=== PATIENT | male | born 1960 | race Two or more races ===

== ENCOUNTER 2016-12-22 20:46 | Observation (INO) | payer OTHER ==
[~2016-12-22] VITALS: Ht 170.2 cm; Wt 84.4 kg
[~2016-12-22 20:46] MED LIST: ARICEPT10 MG PO; ASPIR 8181 M1 PO; ATENOLOL50 M1 PO; BENTYL20 MG PO; BUSPIRONE HCL10 MG PO; FUROSEMIDE20 MG PO; ISOSORBIDE MONO30 MG PO; LASIX20 MG PO; LIDOCAINE700 MG TD; LIPITOR40 MG PO; LISINOPRIL5 MG PO; LYRICA75 MG PO; METFORMIN HCL500 MG PO; NAMENDA10 MG PO; NORVASC10 MG PO; PLAVIX75 MG PO; PROZAC40 MG PO; TRAMADOL HCL50 MG PO; TRAZODONE HCL150 MG PO; WELLBUTRIN XL300 MG PO; ZOFRAN4 MG PO
[2016-12-22 21:42] LABS: D-DIMER ELISA 0.22 mg/L FEU (< 0.57); PROTHROMBIN TIME 10.4 (9.2-11.2); PTT 26.8 (25-32)
[2016-12-22 21:47] LABS: EOSINOPHIL (%) 5.7 % (0-5); EOSINOPHIL COUNT 0.5 K/uL (0-0.3); HEMATOCRIT 40.7 % (38.0-50.0); IMMATURE GRANULOCYTE (%) 0.4 % (0.0-0.7); INSTRUMENT ABS NEUTROPHIL CT 5.2 K/uL; MCH 28.1 PG (29.0-34.0); MCHC 32.4 G/DL (30.0-36.0); MCV 86.8 FL (86-99); MEAN PLAT.VOLUME 12.1 uM^3 (9.0-12.4); MONOCYTE (%) 7.8 % (3-12); MONOCYTE COUNT 0.7 K/uL (0-0.8); NEUTROPHIL (%) 54.7 % (45-76); NEUTROPHIL COUNT 5.2 K/uL (1.8-6.4); PLATELET COUNT 217 K/uL (156-360); RBC DIS.WIDTH-CV 14.8 % (11.8-14.6); RBC DIS.WIDTH-SD 47.3 % (39-53); RED BLOOD COUNT 4.69 M/uL (4.00-5.50); WHITE BLOOD COUNT 9.5 K/uL (4.1-10.2)
[2016-12-22 21:57] LABS: CHLORIDE 105 mEq/L (99-109); POTASSIUM 5.5 mEq/L (3.7-5.4); SODIUM 139 mEq/L (136-147)
[2016-12-22 21:58] LABS: MAGNESIUM 3.3 mg/dL (1.3-2.7)
[2016-12-22 21:59] LABS: GLUCOSE 124 mg/dL (70-99)
[2016-12-22 22:00] LABS: ANION GAP 11 MEQ/L (2-14)
[2016-12-22 22:03] LABS: GFR ESTIMATE (CALCULATED) > 59 mL/min/
[2016-12-22 22:04] LABS: UREA NITROGEN (BUN) 10 mg/dL (9-23)
[2016-12-22 22:07] LABS: TROP-I INTERPRETATION NEGATIVE; TROPONIN-I < 0.01 ng/mL (0.0-0.30)
[2016-12-23 01:27] VITALS: BP 162/71
[2016-12-23 04:20] VITALS: BP 170/83
[2016-12-23 04:30] LABS: TROP-I INTERPRETATION NEGATIVE; TROPONIN-I < 0.01 ng/mL (0.0-0.30)
[2016-12-23 08:16] LABS: POINT-OF-CARE METER ID UU13113700
[2016-12-23 08:31] VITALS: BP 138/77
[2016-12-23 11:18] LABS: TROP-I INTERPRETATION NEGATIVE; TROPONIN-I < 0.01 ng/mL (0.0-0.30)
[2016-12-23 11:43] LABS: ANION GAP 8 MEQ/L (2-14); CHLORIDE 106 MEQ/L (99-109); GFR ESTIMATE (CALCULATED) > 59 mL/min/; GLUCOSE 125 mg/dL (70-99); SAMPLE HEMOLYSIS CHECK 0; SAMPLE ICTERIC CHECK 0; SAMPLE LIPEMIA CHECK 0; SODIUM 141 MEQ/L (136-147); UREA NITROGEN (BUN) 11 mg/dL (9-23)
[2016-12-23 11:46] LABS: POTASSIUM 3.8 MEQ/L (3.7-5.4)
[2016-12-23 12:00] VITALS: BP 146/74
[2016-12-23 12:45] LABS: POINT-OF-CARE METER ID UU13113700
[2016-12-23] MEDS ORDERED: METFORMIN HCL500 MG PO (13:13)
[2016-12-23] MEDS ORDERED: FUROSEMIDE20 MG PO (13:13)
[2016-12-23] MEDS ORDERED: NAMENDA10 MG PO (13:13)
[2016-12-23] MEDS ORDERED: PLAVIX75 MG PO (13:13)
[2016-12-23] MEDS ORDERED: PROZAC40 MG PO (13:13)
[2016-12-23] MEDS ORDERED: LIPITOR40 MG PO (13:13)
[2016-12-23] MEDS ORDERED: TRAZODONE HCL150 MG PO (13:13)
[2016-12-23] MEDS ORDERED: ASPIR 8181 M1 PO (13:13)
[2016-12-23] MEDS ORDERED: WELLBUTRIN XL300 MG PO (13:13)
[2016-12-23] MEDS ORDERED: BUSPIRONE HCL10 MG PO (13:13)
[2016-12-23] MEDS ORDERED: ISOSORBIDE MONO30 MG PO (13:13)
[2016-12-23] MEDS ORDERED: ARICEPT10 MG PO (13:13)
== END 2016-12-23 12:50 | disposition home or self-care (01) ==
LOC: EME 20:46 → EDOF 12-23 00:08 → 5WEST 12-23 00:59
PROVIDERS: Emergency Medicine; Internal Medicine; Physician Assistant Medical
DX: R07.89 Other chest pain (principal); I16.0 Hypertensive urgency; I10 Essential (primary) hypertension; I25.10 Atherosclerotic heart disease of native coronary artery without angina pectoris; F41.9 Anxiety disorder, unspecified; Z95.5 Presence of coronary angioplasty implant and graft; E11.9 Type 2 diabetes mellitus without complications; E78.00 Pure hypercholesterolemia, unspecified; F32.9 Major depressive disorder, single episode, unspecified; F17.200 Nicotine dependence, unspecified, uncomplicated; G30.0 Alzheimer's disease with early onset; F02.80 Dementia in other diseases classified elsewhere, unspecified severity, without behavioral disturbance, psychotic disturbance, mood disturbance, and anxiety; M79.672 Pain in left foot; E78.5 Hyperlipidemia, unspecified
CPT/HCPCS: 71010; 71275; 80048; 82948; 83735; 84484; 85025; 85379; 85610; 85730; 93005; 99281; 99285; G0378; J1650; J1815; J2270

== ENCOUNTER 2017-01-07 23:42 | Emergency (ER) | payer OTHER ==
[~2017-01-07] VITALS: Ht 170.2 cm; Wt 84.5 kg
[2017-01-08 00:22] LABS: HEMATOCRIT 45.7 % (38.0-50.0); MCH 28.4 PG (29.0-34.0); MCHC 32.6 G/DL (30.0-36.0); MCV 87.2 FL (86-99); PLATELET COUNT 303 K/uL (156-360); RBC DIS.WIDTH-CV 14.4 % (11.8-14.6); RBC DIS.WIDTH-SD 46.2 % (39-53); RED BLOOD COUNT 5.24 M/uL (4.00-5.50)
[2017-01-08 00:24] LABS: WHITE BLOOD COUNT 14.5 K/uL (4.1-10.2)
[2017-01-08 00:33] LABS: CHLORIDE 106 mEq/L (99-109); SODIUM 141 mEq/L (136-147)
[2017-01-08 00:34] LABS: GLUCOSE 103 mg/dL (70-99)
[2017-01-08 00:36] LABS: ANION GAP 11 MEQ/L (2-14)
[2017-01-08 00:36] LABS: ADD MIUA? YES; BILIRUBIN NEGATIVE; BLOOD MODERATE; COLOR STRAW ((YELLOW)); GLUCOSE (STRIP) NEGATIVE; KETONES NEGATIVE; LEUKOCYTES NEGATIVE; NITRITE NEGATIVE; PROTEIN (STRIP) NEGATIVE; SPECIFIC GRAVITY 1.004 (1.000-1.030); UROBILINOGEN 0.2 MG/DL (0.2-1.0)
[2017-01-08 00:38] LABS: GFR ESTIMATE (CALCULATED) > 59 mL/min/
[2017-01-08 00:39] LABS: UREA NITROGEN (BUN) 8 mg/dL (9-23)
[2017-01-08 00:41] LABS: BACTERIA RARE /HPF; EPITHELIAL CELLS NONE SEEN /HPF; MUCUS NONE SEEN /LPF; RED BLOOD CELLS 0-5 /HPF (0-5); UCUL ADDED? NO; WHITE BLOOD CELLS 0-5 /HPF (0-5)
[2017-01-08] MEDS ORDERED: FLOMAX0.4 MG PO (01:48)
[2017-01-08] MEDS ORDERED: NORCO 5/3251 TABLET PO (01:48)
[2017-01-08 02:05] VITALS: BP 160/98
== END 2017-01-08 02:15 | disposition home or self-care (01) ==
LOC: EME 23:42
DX: N20.1 Calculus of ureter (principal); D72.829 Elevated white blood cell count, unspecified; R31.9 Hematuria, unspecified; E11.9 Type 2 diabetes mellitus without complications; J44.9 Chronic obstructive pulmonary disease, unspecified; E78.5 Hyperlipidemia, unspecified; I10 Essential (primary) hypertension; I25.2 Old myocardial infarction; Z95.1 Presence of aortocoronary bypass graft; F17.200 Nicotine dependence, unspecified, uncomplicated
CPT/HCPCS: 74176; 80048; 81003; 85027; 99281; 99284; J1885

== ENCOUNTER 2017-05-02 11:46 | Emergency (ER) | payer OTHER ==
[~2017-05-02 11:46] MED LIST changes: +FLOMAX0.4 MG PO; +NORCO 5/3251 TABLET PO
[2017-05-02 12:06] LABS: EOSINOPHIL (%) 1.9 % (0-5); EOSINOPHIL COUNT 0.4 K/uL (0-0.3); HEMATOCRIT 38.7 % (38.0-50.0); IMMATURE GRANULOCYTE (%) 1.2 % (0.0-0.7); IMMATURE GRANULOCYTE COUNT 0.2 K/uL; INSTRUMENT ABS NEUTROPHIL CT 13.4 K/uL; LYMPHOCYTE COUNT 3.8 K/uL (1.0-2.8); MCH 29.5 PG (29.0-34.0); MCHC 33.6 G/DL (30.0-36.0); MEAN PLAT.VOLUME 10.6 uM^3 (9.0-12.4); MONOCYTE (%) 4.7 % (3-12); MONOCYTE COUNT 0.9 K/uL (0-0.8); NEUTROPHIL (%) 71.7 % (45-76); NEUTROPHIL COUNT 13.4 K/uL (1.8-6.4); PLATELET COUNT 301 K/uL (156-360); RBC DIS.WIDTH-CV 13.9 % (11.8-14.6); RBC DIS.WIDTH-SD 45.2 % (39-53); WHITE BLOOD COUNT 18.7 K/uL (4.1-10.2)
[2017-05-02 12:20] LABS: AMYLASE 99 IU/L (1-118); CHLORIDE 103 mEq/L (99-109); POTASSIUM 3.8 mEq/L (3.7-5.4); SODIUM 137 mEq/L (136-147)
[2017-05-02 12:21] LABS: GLUCOSE 118 mg/dL (70-99)
[2017-05-02 12:23] LABS: ANION GAP 10 MEQ/L (2-14)
[2017-05-02 12:25] LABS: GFR ESTIMATE (CALCULATED) 56 mL/min/; SERUM ETHYL ALCOHOL < 10 mg/dL
[2017-05-02 12:26] LABS: UREA NITROGEN (BUN) 9 mg/dL (9-23)
[2017-05-02 12:28] LABS: LIPASE 119 U/L (1.0-51.0)
== END 2017-05-02 16:11 | disposition short-term general hospital (02) ==
LOC: TRA 11:46
PROVIDERS: Emergency Medicine
PROC: 0QSGXZZ Reposition Right Tibia, External Approach (ICD-10-PCS; principal; 2017-05-02)
PROC: 0QSJXZZ Reposition Right Fibula, External Approach (ICD-10-PCS; principal; 2017-05-02)
PROC: 3E0234Z Introduction of Serum, Toxoid and Vaccine into Muscle, Percutaneous Approach (ICD-10-PCS; principal; 2017-05-02)
PROC: 0W9930Z Drainage of Right Pleural Cavity with Drainage Device, Percutaneous Approach (ICD-10-PCS; 2017-05-02)
DX: S82.841A Displaced bimalleolar fracture of right lower leg, initial encounter for closed fracture (principal); S36.116A Major laceration of liver, initial encounter; S27.2XXA Traumatic hemopneumothorax, initial encounter; S02.31XA Fracture of orbital floor, right side, initial encounter for closed fracture; V43.52XA Car driver injured in collision with other type car in traffic accident, initial encounter; Y92.410 Unspecified street and highway as the place of occurrence of the external cause; S06.0X9A Concussion with loss of consciousness of unspecified duration, initial encounter; S02.40CA Maxillary fracture, right side, initial encounter for closed fracture; S36.892A Contusion of other intra-abdominal organs, initial encounter; S27.321A Contusion of lung, unilateral, initial encounter; S22.43XA Multiple fractures of ribs, bilateral, initial encounter for closed fracture; S00.81XA Abrasion of other part of head, initial encounter; S40.211A Abrasion of right shoulder, initial encounter; S61.511A Laceration without foreign body of right wrist, initial encounter; I10 Essential (primary) hypertension; E78.5 Hyperlipidemia, unspecified; I25.10 Atherosclerotic heart disease of native coronary artery without angina pectoris; Z95.5 Presence of coronary angioplasty implant and graft; Z79.82 Long term (current) use of aspirin; Z79.02 Long term (current) use of antithrombotics/antiplatelets; E11.9 Type 2 diabetes mellitus without complications; Z79.84 Long term (current) use of oral hypoglycemic drugs; K21.9 Gastro-esophageal reflux disease without esophagitis; G30.9 Alzheimer's disease, unspecified; F02.80 Dementia in other diseases classified elsewhere, unspecified severity, without behavioral disturbance, psychotic disturbance, mood disturbance, and anxiety; K42.9 Umbilical hernia without obstruction or gangrene; Z87.891 Personal history of nicotine dependence
CPT/HCPCS: 70450; 71010; 71260; 72020; 72125; 72129; 72132; 72170; 73130; 73610; 74177; 80048; 81003; 82150; 83690; 85025 91; 86850; 86900; 86901; 86920; 93005; 99281; 99285; G0480; J2270; J2405; J3010

== ENCOUNTER 2017-06-24 10:29 | Emergency (ER) | payer OTHER ==
[~2017-06-24] VITALS: Ht 170.2 cm; Wt 78.9 kg
[2017-06-24] MEDS ORDERED: NORVASC10 MG PO (10:54)
[2017-06-24] MEDS ORDERED: CATAPRES0.1 MG PO (10:55)
[2017-06-24] MEDS ORDERED: NAPROSYN500 MG PO (11:42)
[2017-06-24] MEDS ORDERED: LIDODERM 5% P1 PATCH TD (11:42)
[2017-06-24 11:56] VITALS: BP 130/72
== END 2017-06-24 11:57 | disposition home or self-care (01) ==
LOC: EME 10:29
DX: R07.81 Pleurodynia (principal); S22.41XD Multiple fractures of ribs, right side, subsequent encounter for fracture with routine healing; M25.511 Pain in right shoulder; V89.2XXD Person injured in unspecified motor-vehicle accident, traffic, subsequent encounter; I11.0 Hypertensive heart disease with heart failure; I50.9 Heart failure, unspecified; F32.9 Major depressive disorder, single episode, unspecified; E11.9 Type 2 diabetes mellitus without complications; Z79.84 Long term (current) use of oral hypoglycemic drugs; J44.9 Chronic obstructive pulmonary disease, unspecified; E78.5 Hyperlipidemia, unspecified; G30.9 Alzheimer's disease, unspecified; F02.80 Dementia in other diseases classified elsewhere, unspecified severity, without behavioral disturbance, psychotic disturbance, mood disturbance, and anxiety; I25.2 Old myocardial infarction; F41.9 Anxiety disorder, unspecified; Z95.1 Presence of aortocoronary bypass graft; F17.200 Nicotine dependence, unspecified, uncomplicated; Z79.82 Long term (current) use of aspirin
CPT/HCPCS: 71020; 73030; 99281; 99284; J1885

== ENCOUNTER 2017-11-03 19:02 | Emergency (ER) | payer OTHER ==
[~2017-11-03] VITALS: Ht 170.2 cm; Wt 82.2 kg
[~2017-11-03 19:02] MED LIST changes: +CATAPRES0.1 MG PO; +LIDODERM 5% P1 PATCH TD; +NAPROSYN500 MG PO
[2017-11-03 19:48] LABS: HEMATOCRIT 37.8 % (38.0-50.0); MCHC 34.4 G/DL (30.0-36.0); MCV 87.3 FL (86-99); PLATELET COUNT 247 K/uL (156-360); RBC DIS.WIDTH-CV 14.3 % (11.8-14.6); RBC DIS.WIDTH-SD 45.6 % (39-53); RED BLOOD COUNT 4.33 M/uL (4.00-5.50); WHITE BLOOD COUNT 9.3 K/uL (4.1-10.2)
[2017-11-03 19:59] LABS: CHLORIDE 104 mEq/L (99-109); POTASSIUM 3.4 mEq/L (3.7-5.4); SODIUM 136 mEq/L (136-147)
[2017-11-03 20:00] LABS: GLUCOSE 102 mg/dL (70-99)
[2017-11-03 20:04] LABS: CREATININE 1.4 mg/dL (0.6-1.3); GFR ESTIMATE (CALCULATED) 55 mL/min/ (58.99-99999)
[2017-11-03 20:05] LABS: UREA NITROGEN (BUN) 9 mg/dL (9-23)
[2017-11-03 20:12] LABS: TROP-I INTERPRETATION NEGATIVE; TROPONIN-I < 0.01 ng/mL (0.0-0.30)
[2017-11-03 23:39] VITALS: BP 145/88
== END 2017-11-03 23:39 | disposition home or self-care (01) ==
LOC: EME 19:02
PROVIDERS: Emergency Medicine
DX: R07.89 Other chest pain (principal); F43.9 Reaction to severe stress, unspecified; J44.9 Chronic obstructive pulmonary disease, unspecified; E11.9 Type 2 diabetes mellitus without complications; E78.5 Hyperlipidemia, unspecified; I10 Essential (primary) hypertension; I25.2 Old myocardial infarction; F41.9 Anxiety disorder, unspecified; F32.9 Major depressive disorder, single episode, unspecified; G30.9 Alzheimer's disease, unspecified; F17.200 Nicotine dependence, unspecified, uncomplicated; Z85.9 Personal history of malignant neoplasm, unspecified; Z95.1 Presence of aortocoronary bypass graft; Z98.84 Bariatric surgery status
CPT/HCPCS: 71045; 80048; 84484; 85027; 93005; 99281; 99284